=== PATIENT | female | born 1955 | race Caucasian/White ===

== ENCOUNTER 2017-11-06 15:16 | Emergency (ER) | payer OTHER ==
[2017-11-06] MEDS ORDERED: PROPARACAINE 0.5% OP 15ML BTL OU ONE (15:25)
[2017-11-06 15:32] VITALS: BP 146/97
[2017-11-06] MEDS ORDERED: LR(*) 1000 ML BAG 2,000 ML ONE ×4 (15:33→16:35)
--- NOTE | 2017-11-06 15:47 | ER Report ---
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 Cardiovascular: No chest pain, no palpitations. Gastrointestinal: No vomiting, no abdominal pain. Musculoskeletal: No back pain. Remainder of the 14 system rev: Yes Reviewed Nurses Notes: Yes Old Medical Records Reviewed: Yes Constitutional Vital Sign - Last 24 Hours 11/06/17 15:23 Pulse 66 Resp 20 B/P (MAP) 146/97 Pulse Ox 97 O2 Delivery Room Air Physical Exam General Appearance: [The patient is alert, has no immediate need for airway protection and no current signs of toxicity.] Appears very uncomfortable Eyes: Bilateral pupil equal round and reactive sclera is injected and indurated bilaterally unable to do visual acuity at this time Respiratory: Chest is non tender, lungs are clear to auscultation. Cardiac: regular rate and rhythm [ ] Gastrointestinal: Abdomen is soft and non tender, no masses, bowel sounds normal. Musculoskeletal: Neck: Neck is supple and non tender. Extremities have full range of motion and are non tender. Skin: No rashes or lesions. [ ] DIFFERENTIAL DIAGNOSIS: After history and physical exam differential diagnosis was considered for chemical exposure basic to the eyes Medical Decision Making ED Course/Re-evaluation ED Course ED comical [id number] female any acute exposure with a very basic pH of 13 substance to both eyes left greater than right her eyes were copiously irrigated for 15 minutes at an emergency stand with normal tapwater then the June poison control was notified patient was placed in a room at 8 L of lactated Ringer per eyes from [place] lens pH reduced back down to 7.2 ophthalmology consulted at bedside the epidural layer of the cornea is still intact patient is competent and acuity was reevaluated ophthalmology will follow-up tomorrow with a repeat evaluation in the office patient is safe for discharge Decision to Disposition Date: Nov 06, 2017 Decision to Disposition Time: 17:54 Depart Departure Latest Vital Signs Vital Signs Date Time Temp Pulse Resp B/P (MAP) Pulse Ox O2 Delivery O2 Flow Rate FiO2 11/06/17 15:23 66 20 146/97 97 Room Air Impression: Primary Impression: Chemical exposure of eye Condition: Improved Disposition: HOME OR SELF-CARE Referrals: KRYSTA SAINI OD 1 Day Patient Instructions: [facility] [place] (DC) HODA CHACON MD Nov 06, 2017 15:47
[2017-11-06] MEDS ORDERED: prednisoLONE ACE 1% OP 5ML BTL OU ONE ×2 (18:05→18:20)
[2017-11-06] MEDS ORDERED: APAP/HYDROCODONE 325/5 TAB PO ONE (18:05)
[2017-11-06] MEDS ORDERED: ATROPINE 1% OU SCH (18:05)
[2017-11-06] MEDS ORDERED: BESIFLOXACIN OU SCH (21:00)
[2017-11-07] MEDS ORDERED: ATROPINE 1% OU SCH (09:00)
== END 2017-11-06 18:47 | disposition home or self-care (01) ==
LOC: ER 15:23
DX: H57.12 Ocular pain, left eye (principal); H53.8 Other visual disturbances; Z77.098 Contact with and (suspected) exposure to other hazardous, chiefly nonmedicinal, chemicals
CPT/HCPCS: 96360; 99283; J7120

== ENCOUNTER → 2018-05-12 | Outpatient (CLI) | payer OTHER ==
[~2018-05-12] MED LIST: BENZ200C15 PO; GUAI120L3 PO; Work Note
--- NOTE | 2018-05-12 09:34 | RADIOLOGY IMAGING REPORT ---
FACILITY: [facility] PATIENT NAME: Vesna Yoder : 1955 MR: [id number] V: [id number] EXAM DATE: ORDERING PHYSICIAN: TI HANNA TECHNOLOGIST: Location: [facility] Patient: Vesna Yoder : 1955 Visit/Account:[id number] Date of Sevice: 05/12/2018 Technique: CHEST PA LAT HISTORY: Productive cough COMPARISON: None available Findings: The lungs are clear. No pleural effusion or pneumothorax. The cardiomediastinal silhouett e is normal. Impression: 1. No acute cardiopulmonary process. Report Dictated By: Osiel Sierra DO at 05/12/2018 9:27 AM Report E-Signed By: Osiel Sierra DO at 05/12/2018 9:29 AM WSN:[id number]
== END ==
LOC: RAD 08:45
PROVIDERS: ATTEND Nurse Practitioner Primary Care
DX: R05 Cough (principal)
CPT/HCPCS: 71046